=== PATIENT | female | born 1990 | race American Indian/Alaskan Native ===

== ENCOUNTER 2017-06-05 16:14 | Emergency (ER) | payer SELFPAY ==
[2017-06-05 16:21] VITALS: BP 134/91
[2017-06-05 17:24] LABS: HCG Qualitative,Urine Negative (Negative)
[2017-06-05 17:33] LABS: Bilirubin,Urine NEG (Negative); Blood,Urine MOD (Negative); Color,Urine Yellow (Yellow); Mucus,Urine 3+ /HPF; Protein,Urine <15 mg/dL mg/dL (Negative)
--- NOTE | 2017-06-05 18:28 | Emergency Department Report ---
Christina Doc - Documentation Documentation: 26-year-old female presents to the hospital with suspicion of STD. She states that her partner was treated for gonorrhea and chlamydia because he had dysuria. His test is still pending. Patient states she is having some mild burning when she urinates but is currently on her menstrual cycle. She also complains of a posterior left pharyngeal soreness that she noted several days ago that is painful. History of cold sores on her lip in the past. Denies vag lesions or fever. Focused physical exam Herpetic lesion to the oral mucosa left posterior pharyngeal area Lungs clear to auscultation Abdomen: Soft, nontender, nondistended UA review No signs of infection No Blood likely secondary to current menstrual cycle Patient is a nonmedical emergency and elected not to be evaluated further after request for copay Pt advised to go to health department or primary care doctor for further treatment
== END 2017-06-05 18:35 | disposition left against medical advice (07) ==
LOC: ED 16:14
DX: R30.0 Dysuria (principal); Z53.21 Procedure and treatment not carried out due to patient leaving prior to being seen by health care provider
CPT/HCPCS: 81001; 81025